=== PATIENT | male | born 1990 | race Caucasian/White ===

== ENCOUNTER → 2023-05-14 | Outpatient (CLI) | payer OTHER ==
--- NOTE | 2023-05-21 17:44 | CT ---
EXAMINATION TYPE: CT wrist RT wo con DATE OF EXAM: 05/14/2023 9:51 AM COMPARISON: Wrist radiographs 05/12/2023 CLINICAL INDICATION:Male, 32 years old with history of RIGHT WRIST W/3D reconstruction; PHH, Wrist fx TECHNIQUE: Noncontrast CT was obtained of the right wrist. Axial coronal and sagittal reformatted im ages, soft tissue and bone window were submitted for review. 3-D reconstruction was created on a [employer] workstation. Contrast used: mL of , Oral contrast used: None CT DLP: 143.3 mGycm, Automated exposure control for dose reduction was used. FINDINGS: Bone: Overlying splint/cast is present slightly limiting fine bony details. Comminuted longitudinally impacted intra-articular fracture of the distal radial metaphysis and epiph ysis with numerous associated bone fragments. There are several cortical bone fragments which are dri jonathan into the medullary cavity along the dorsal aspect of the metaphysis and the epiphysis, one of whi ch is platelike and transversely oriented measuring about 8 or 9 mm wide, and the distal tip extends up to and perhaps slightly into the radiocarpal joint space, directed towards the lunate. Fracture li gamaliel extend to the level of the distal radioulnar joint with an AP fracture gap of up to 3 mm in the r adius at this location but no significant articular surface step-off is otherwise seen. AP fracture g ap in the mid to posterior articular surface of the distal radius of up to 3.5 mm, but no significant articular surface step-off is otherwise seen. There is a mildly displaced fracture through the ulnar styloid process. Scaphoid appears intact. The other carpal bones also appear intact and normally aligned. Visualized m etacarpals are unremarkable. Soft tissues: There is soft tissue swelling regional to the fractures. No focal fluid collection, soft tissue gas, or radiopaque foreign body is seen. Other: 3-D reconstructions serve to reconfirm the above findings. IMPRESSION: CT right wrist with 3-D reconstructions: 1. Acute comminuted longitudinally impacted intra-articular fracture of the distal radius, with nume emily bone fragments as detailed above. No significant ventral or dorsal angulation of the distal frag ments is seen. 2. Fracture lines also extend to the level of the distal radioulnar joint. 3. Acute mildly displaced fracture through the ulnar styloid process.
== END | disposition home or self-care (01) ==
LOC: RADCTMAIN 09:23
PROVIDERS: ATTEND Orthopaedic Surgery Hand Surgery
DX: S52.571A Other intraarticular fracture of lower end of right radius, initial encounter for closed fracture (principal); S52.611A Displaced fracture of right ulna styloid process, initial encounter for closed fracture

== ENCOUNTER 2023-05-20 10:16 | Day surgery (SDC) | payer OTHER ==
--- NOTE | 2023-05-19 13:09 | P.HPOR ---
History of Present Illness H&P Date: 05/19/23 Subjective: This is a 32 year old male that presents today for follow up evaluation regarding a right wrist injury that occurred on 05/08/2023 when he was snowboarding in [place]. He fell onto an outstretched hand and tried to break his fall and had immediate pain and deformity in the wrist. [place] and [place] facility [place]. He underwent closed reduction and immobilization. He's been in his plaster cast since the day of the injury. He denies any numbness or tingling. He works as an stonemason helper. He has a history of a right distal radius fracture that was treated conservatively when he was in sixth or seventh grade. He recently underwent CT and is here to discuss results. Physical Examination: RUE: AIN/PIN/Radial/Ulnar/Median motor intact. Radial/Ulnar/Median SILT. 2+/4 Radial/Ulnar pulses palpated. 5/5 APB, 5/5 FDI. Splint clean dry and intact. FPL/EPL intact. Imaging: X-Rays of the right wrist 3V reviewed from prior office demonstrate a right intra-articular distal radius fracture. 5 degrees of dorsal angulation. Imaging from day of injury revealed initial dorsal angulation of [address] scan of the right wrist demonstrates a comminuted intra-articular distal radius fracture. Severe comminution present of the dorsal half of the articular surface of the radius with involvement of the dorsal lunate facet and volar lunate facet and radial styloid. 4mm of articular gapping with cortical bone interposed in between fragments. Minimally displaced fracture of the ulnar styloid. Impression: 1.) Right intra-articular distal radius fracture, comminuted. Plan: Diagnosis and treatment options were discussed with the patient. Due to the amount of articular involvement and comminution as well as the initial severe degree of dorsal angulation I recommend surgical intervention with a right distal radius open reduction internal fixation. We discussed the complexity of his fracture due to the distal location, severe articular comminution and high energy nature of the injury. Risks and benefits of surgery including bleeding, infection, damage to surrounding tissue, and need for further surgery were discussed and the patient wished to go forward with surgery. We discussed his fracture may possibly require multiple plates with both a volar and dorsal approach and that irritation hardware present dorsally may require removal in the future if he remains symptomatic. We discussed his increased risk of developing post traumatic arthritis due to the nature of the articular fracture pattern. He expressed understanding. The patient was agreeable with this plan. CC: Matilde Ruiz MD -Bhupinder Briscoe DO Orthopedic Hand/Upper Extremity Surgeon Past Medical History Past Medical History: No Reported History History of Any Multi-Drug Resistant Organisms: None Reported Past Surgical History: No Surgical Hx Reported Past Anesthesia/Blood Transfusion Reactions: No Reported Reaction Smoking Status: Never smoker - Past Family History Father History Unknown: Yes Medications and Allergies Home Medications Medication Instructions Recorded Confirmed Type No Known Home Medications 05/16/23 05/16/23 History Allergies Allergy/AdvReac Type Severity Reaction Status Date / Time No Known Allergies Allergy Verified 05/16/23 14:09 Physical Examination Osteopathic Statement: *. No significant issues noted on an osteopathic structural exam other than those noted in the History and Physical/Consult.
[~2023-05-20 10:16] MED LIST: DEXAMETHASONE SOD PHOSPHATE 4 MG/ML 1 ML VIAL IV ONE; HYDROmorphone 0.5 MG/0.5 ML SYRINGE IVP PRN; LACTATED RINGERS 1,000 ML IV SCH; ONDANSETRON 4 MG/2 ML VIAL IVP ONE
[2023-05-20 11:04] VITALS: TEMP 97.5
[2023-05-20] MEDS ORDERED: MIDAZOLAM 2 MG/2 ML VIAL IVP ONE (11:35)
[2023-05-20] MEDS ORDERED: fentaNYL (PF) 50 MCG/ML 2 ML AMP IVP ONE (11:37)
[2023-05-20] MEDS ORDERED: ROPIVACAINE 5 MG/ML 30 ML VIAL ONE (12:02)
[2023-05-20] MEDS ORDERED: SODIUM CHLORIDE 0.9% (PF) 10 ML VIAL ONE (12:02)
[2023-05-20] MEDS ORDERED: PROPOFOL 10 MG/ML 20 ML VIAL IV ONE (12:02)
[2023-05-20] MEDS ORDERED: LIDOCAINE 1% INJ 10MG/ML (20 ML MDV) ONE (12:02)
[2023-05-20] MEDS ORDERED: KETAMINE HCL IN 0.9 % NACL 50 MG/5 ML SYRINGE ONE (12:02)
[2023-05-20] MEDS ORDERED: MIDAZOLAM 2 MG/2 ML VIAL ONE (12:02)
[2023-05-20] MEDS ORDERED: fentaNYL (PF) 50 MCG/ML 2 ML AMP ONE (12:02)
--- NOTE | 2023-05-20 14:27 | P.ANPRN ---
Procedure Note - Anesthesia - Nerve Block Performed Right Axillary Single Time Out Performed: Yes (1135) Date of Procedure: 05/20/23 Procedure Start Time: 11:36 Procedure Stop Time: 11:42 Location of Patient: PreOp Indication: Acute Post-Operative Pain, Requested by Surgeon Specifically requested for management of pain by DrJanna: Bhupinder Briscoe Sedation Type: Sedate with meaningful contact maintained Preparation: Sterile Prep Position: Supine Catheter: None Needle Types: Pajunk Needle Gauge: 21 Ultrasound used to observe medication spread: Yes Injectate: 0.5% Ropivacaine (see comment for volume) (30cc + 20cc nacl pf (12.5cc aliquots at each mskcut, medial, ulnar and radial) Blood Aspirated: No Pain Paresthesia on Injection Noted: No Resistance on Injection: Normal Image Stored and Saved: Yes Events: Uneventful and Well Tolerated
[2023-05-20] MEDS ORDERED: ACETAMINOPHEN TAB 500 MG TAB ONE (15:09)
[2023-05-20] MEDS ORDERED: KETOROLAC 15 MG/ML 1 ML VIAL ONE (15:09)
[2023-05-20] MEDS ORDERED: KETOROLAC 15 MG/ML 1 ML VIAL IVP ONE (15:20)
[2023-05-20] MEDS ORDERED: ACETAMINOPHEN TAB 500 MG TAB PO ONE (15:20)
--- NOTE | 2023-05-20 15:26 | P.OP ---
Date of Procedure: 05/20/23 Preoperative Diagnosis: 1.) Right comminuted intra-articular distal radius fracture Postoperative Diagnosis: 1.) Right comminuted intra-articular distal radius fracture Procedure(s) Performed: 1.) Open reduction internal fixation of right comminuted intra-articular distal radius fracture, greater than 3 parts. Implants: Vasquez titanium volar distal radius locking plate, standard width. Anesthesia: [facility] Surgeon: Bhupinder Briscoe Estimated Blood Loss (ml): 10 Pathology: none sent Condition: stable Disposition: PACU Description of Procedure: This is a 32 year old male who sustained a displaced intra-articular distal radius fracture while downhill skiing in [place] and presents today for open reduction internal fixation of their right distal radius fracture. Risks and benefits of surgery were discussed with the patient including bleeding, infection, damage to surrounding tissue, need for further surgery and the patient wished to proceed with surgical intervention. The patients was seen in the pre-operative area by myself. Consent and H&P were completed and updated. The correct extremity was marked in the pre-operative area by myself and all other questions were answered. Operative Narrative: The patient was brought to the operating room by the department of anesthesia. They remained on the portable stretcher and a rolling hand table was brought to the side of the operative extremity. Pre-operative time out was performed indicating the correct patient, procedure and laterality. All in the room agreed. Pre-operative antibiotics were given prior to skin incision. The patient was then drifted off to sleep by the department of anesthesia. A nonsterile tourniquet was then applied to the operative extremity and the right upper extremity was then prepped and draped in normal sterile fashion. The op erative extremity was the exsanguinated with an esmarch bandage and the tourniquet was inflated to 250mmHg. A longitudinal incision centered over the FCR tendon was made with a 15-blade scalpel. Blunt dissection was taken down to the FCR tendon sheath using Bovie cautery for meticulous hemostasis. The FCR sheath was opened with tenotomy scissors. The floor of the FCR sheath was then incised with a 15-blade scalpel and the FPL tendon and muscle belly was swept bluntly in an ulnar direction to reveal the pronator quadratus. Pronator quadratus was sharply incised with a 15-blade scalpel along the radial border of the distal radius, coming across transversely parallel to the joint at the level of the watershed line, radial artery was identified and protected. Periosteal elevator was then used to elevate the pronator quadratus off the distal radius from a radial to ulnar fashion. A Zephyr elevator was used to lever the distal piece back into place and free up the fractured fragments. A standard width 3 hole Vasquez Variax 2 titanium volar locking distal radius plate was chosen to fit the patients anatomy best. This was placed on the distal radius under direct visualization and the oblong hole was drilled and filled with a non-locking screw. The fracture was then reduced to the plate distally and a k-wire was placed in the ulnar most k-wire hole in the proximal row. Fluoroscopy was then utilized to confirm correct placement of plate in the radial/ulnar plane and distal k-wire placement was confirmed to be proximal to the subchondral bone on 20 degree elevated lateral view confirming extra-articular screw placement. Adventist of radial height, inclination and volar tilt was achieved. The distal rows and radial styloid screw holes were then drilled and filled from ulnar to radial with locking screws. Attention was then brought to the proximal shaft screws. Proximal nonlocking and locking shaft screws were drilled, measured, and filled. The wrist joint was the ranged and full smooth flexion/extension with no crepitus appreciated. Final imaging was taken confirming extra-articular placement of distal screws at DRUJ and radiocarpal joint. The wound was then irr igated. Subcutaneous closure was performed with 4-0 monocryl suture. Sterile dressing consisting of Steri strips, 4x4s, and a volar plaster splint was applied. Tourniquet was let down and the hand had immediate perfusion. The patient was then woken by the department of anesthesia and transferred to PACU in stable condition. Bhupinder Briscoe D.O. Orthopedic Hand/Upper Extremity Surgeon
[2023-05-20 15:46] VITALS: PULSE 88
[2023-05-20 16:29] VITALS: BP 133/83; RESP 20
== END 2023-05-20 16:23 | disposition home or self-care (01) ==
LOC: OR 10:16
PROVIDERS: ATTEND Orthopaedic Surgery Hand Surgery
DX: S52.571A Other intraarticular fracture of lower end of right radius, initial encounter for closed fracture (principal); G89.18 Other acute postprocedural pain; V00.311A Fall from snowboard, initial encounter; Y93.23 Activity, snow (alpine) (downhill) skiing, snowboarding, sledding, tobogganing and snow tubing
CPT/HCPCS: 25609; 64415; C1713; J2250; J1100; J0690; J2405; J2001; J3010; J2795; J1885; J2704